=== PATIENT | female | born 1925 | race Caucasian/White ===

== ENCOUNTER 2017-02-02 17:55 | Inpatient (IN) | payer MEDICARE, OTHER ==
[~2017-02-02] VITALS: Ht 142.2 cm; Wt 85.9 kg
[~2017-02-02 17:55] MED LIST: ALBUTEROL2.5 MG/3 M IH; ARICEPT5 MG PO; ATENOLOL50 MG PO; AZELASTINE 0.1%; BUMETANIDE1 MG PO; CARAFATE1 GM/10 ML PO; CARDIZEM CD180 MG PO; CLOBETASOL 0.05%; CLOBETASOL EMOL15 GM TP; DEXILANT60 MG PO; DONEPEZIL HCL5 MG PO; DOXEPIN HCL25 MG PO; ELOCON TP; FERGON240 MG PO; FLECTOR1 EACH TP; FLONASE16 GM NS; FLUTICASONE; FLUTICASONE PROPIONATE IH; FUROSEMIDE40 MG PO; HYDROCODONE-AP1 EAC7 PO; KEFLEX500 MG PO; KLOR-CON 1010 MEQ PO; LEVAQUIN500 MG PO; LIPITOR10 MG PO; LISINOPRIL2.5 MG PO; MEDROL4 M1 PO; METOPROLOL TART25 MG PO; MOMETASONE FURO15 G1 TOP; Metoprolol Tartrate PO; NIFEDIPINE10 MG PO; ONDANSETRON ODT4 MG PO; PRILOSEC20 MG PO; PROAIR HFA; PROCARDIA10 MG PO; PROLIA60 MG/1 ML SQ; QVAR IH; QVAR INH; RESTORIL15 MG PO; SALMETEROL IH; SINGULAIR10 MG PO; TEMAZEPAM15 MG PO; TRAMADOL HCL50 MG PO; VITAMIN B-1000 MCG/2 IM; VITAMIN B-121000 MCG PO; VITAMIN D50000 UNI1 PO; ZOFRAN4 MG PO; [UNRECOGNIZED DRUG - OTHER]
--- NOTE | 2017-02-02 18:10 | NUR ---
AT 1810 CODE SEPSIS INITIATED AND DR CEBALLOS WAS INFORMED PRIOR.
[2017-02-02] MEDS ORDERED: IV NORMAL SALINE 1000 ML BAG IV ONE (18:15)
[2017-02-02] MEDS ORDERED: ONDANSETRON 4 MG/2 ML VIAL IV ONE (18:15)
[2017-02-02] MEDS ORDERED: ONDANSETRON 4 MG/2 ML VIAL ONE (18:27)
[2017-02-02] MEDS ORDERED: KETOROLAC TROMETHAMINE 15 MG INJ IVP ONE (18:45)
[2017-02-02] MEDS ORDERED: ACETAMINOPHEN 325 MG TABLET PO ONE (18:45)
[2017-02-02] MEDS ORDERED: CEFTRIAXONE 2 G in IV DEXTROSE 5% 100 ML IV ONE (18:45)
[2017-02-02] MEDS ORDERED: VOLTAREN100 GM TOP (18:54)
[2017-02-02] MEDS ORDERED: VITAMIN B121000 MCG PO (18:54)
[2017-02-02] MEDS ORDERED: MONTELUKAST SOD10 MG PO (18:54)
[2017-02-02] MEDS ORDERED: PROLIA60 MG/1 ML SQ (18:55)
[2017-02-02] MEDS ORDERED: BUMETANIDE1 MG PO (18:55)
[2017-02-02] MEDS ORDERED: LIPITOR10 MG PO (18:55)
[2017-02-02] MEDS ORDERED: METOPROLOL TART25 MG PO (18:55)
[2017-02-02] MEDS ORDERED: ARICEPT5 MG PO (18:55)
[2017-02-02] MEDS ORDERED: DOXEPIN HCL25 MG PO (18:55)
[2017-02-02] MEDS ORDERED: CARAFATE1 GM PO (18:55)
--- NOTE | 2017-02-02 19:00 | NUR ---
Received report from ALIE Schilling.
[2017-02-02] MEDS ORDERED: CEFTRIAXONE 1 G VIAL ONE (19:03)
[2017-02-02] MEDS ORDERED: ACETAMINOPHEN 325 MG TABLET ONE (19:04)
[2017-02-02] MEDS ORDERED: KETOROLAC TROMETHAMINE 15 MG INJ ONE (19:04)
--- NOTE | 2017-02-02 19:13 | NUR ---
report given to shift supervisor rn.
--- NOTE | 2017-02-02 19:15 | NUR ---
Assessment done. Lung sounds diminished at rt side. Satting 99% on 2 L via nc.Son and caregiver at the bedside.VS stable.Urinated approximately 100mls via bedpan.Reinserted IV at left wrist.
[2017-02-02] MEDS ORDERED: LEVOFLOXACIN 750 MG/D5W 150 ML PIGGYBACK IV ONE (19:30)
[2017-02-02] MEDS ORDERED: NORMAL SALINE FLUSH 10 ML DISP.SYRIN ONE ×2 (19:50→20:35)
[2017-02-02] MEDS ORDERED: IV NORMAL SALINE 250 ML IV ONE ×2 (19:50→20:35)
[2017-02-02] MEDS ORDERED: IOHEXOL 300MG/ML 100 ML INFUS..BTL ONE ×2 (19:50→20:35)
[2017-02-02] MEDS ORDERED: diphenhydrAMINE 50 MG/1 ML VIAL IV ONE (20:00)
--- NOTE | 2017-02-02 20:15 | NUR ---
Hanged Levofloxacin 750mg/150ml over 90 minutes.
[2017-02-02] MEDS ORDERED: diphenhydrAMINE 50 MG/1 ML VIAL ONE (20:16)
[2017-02-02] MEDS ORDERED: LEVOFLOXACIN 750MG/D5W 150 ML IV ONE (20:23)
--- NOTE | 2017-02-02 20:41 | NUR ---
Left for CT via gurney. HL line.
--- NOTE | 2017-02-02 22:35 | NUR ---
Admitted patient to [facility] floor with admitting DX: Urosepsis. AAO x3, accompanied by family and caregiver. Routine admission care done. Plan of care initiated.
[2017-02-02] MEDS ORDERED: MAGNESIUM HYDROXIDE 30 ML LIQUID UDC PO PRN (22:45)
[2017-02-02] MEDS ORDERED: HYDROCODONE/APAP 5-325MG TABLET PO PRN (22:45)
[2017-02-02] MEDS ORDERED: Z GUARD REMEDY PASTE 57 GM TUBE TOP PRN (22:45)
--- NOTE | 2017-02-02 22:50 | NUR ---
Report to ALIE Mccarthy
--- NOTE | 2017-02-02 23:05 | NUR ---
Transferred pt to Tele floor with RN via [facility].Admitting papers w/ RN.VS stable: 97.9, BP 116/45, 64 HR, 20 RR satting 98-100% with 2L O2.
--- NOTE | 2017-02-03 00:05 | NUR ---
Got order from Dr. Martinez for insomia as per family request.
[2017-02-03 00:10] VITALS: BP 131/51; TEMP 98.4
[2017-02-03] MEDS: TRAZODONE 50 MG TABLET PO SCH ×2 (00:17→20:33)
[2017-02-03] MEDS ORDERED: TRAZODONE 50 MG TABLET ONE (00:24)
[2017-02-03 04:00] VITALS: BP 129/56; TEMP 99.5
--- NOTE | 2017-02-03 06:13 | NUR ---
Slept at short interval. Patient complaining of coldness in the room. Bundled up patient with multiple layers of blanket. Safety measure and fall precaution maintained. Denies any pain the whole shift. All needs attended and met. No significant event reported. Continue care as planned.
--- NOTE | 2017-02-03 07:10 | NUR ---
Report given to ALIE Silverman
[2017-02-03] MEDS: ACETAMINOPHEN 325 MG TABLET PO PRN ×2 (08:40→20:33)
[2017-02-03] MEDS: BUMETANIDE 1 MG TABLET PO SCH ×2 (08:40→16:30)
[2017-02-03] MEDS: MONTELUKAST SODIUM 10 MG TABLET PO SCH (08:41)
[2017-02-03] MEDS: METOPROLOL TARTRATE 25 MG TABLET PO SCH (08:41)
[2017-02-03] MEDS: CYANOCOBALAMIN 1,000 MCG TABLET PO SCH (08:41)
[2017-02-03] MEDS: DONEPEZIL 5 MG TABLET PO SCH (08:41)
[2017-02-03] MEDS: LISINOPRIL 5 MG TABLET PO SCH (08:41)
[2017-02-03] MEDS: FERROUS GLUCONATE 324 MG TABLET PO SCH ×2 (08:42→08:47)
[2017-02-03] MEDS: ONDANSETRON 4 MG/2 ML VIAL IV PRN (08:49)
[2017-02-03] MEDS: POTASSIUM CHLORIDE 10 MEQ CAPSULE.SA PO SCH (08:59)
[2017-02-03] MEDS: SUCRALFATE 1 G TABLET PO SCH (08:59)
[2017-02-03] MEDS ORDERED: NIFEdipine 10 MG CAPSULE PO SCH (09:00)
[2017-02-03] MEDS ORDERED: MONTELUKAST SODIUM 10 MG TABLET PO SCH (09:00)
[2017-02-03] MEDS ORDERED: DICLOFENAC SODIUM TOP SCH (09:00)
[2017-02-03] MEDS ORDERED: OMEPRAZOLE 20 MG PO SCH (09:00)
[2017-02-03] MEDS ORDERED: FERROUS GLUCONATE 240 MG PO SCH (09:00)
[2017-02-03] MEDS ORDERED: DONEPEZIL 5 MG TABLET PO SCH (09:00)
--- NOTE | 2017-02-03 09:04 | NUR ---
PT TEMP 99.1, TYLENOL GIVEN. PT COMPLAINING OF NAUSEA, ZOFRAN ALSO GIVEN, WILL CONTINUE TO MONITOR
[2017-02-03] MEDS ORDERED: NIFEdipine 10 MG CAPSULE PO PRN (10:15)
--- NOTE | 2017-02-03 10:24 | NUR ---
DR HOOK AWARE PT POSITIVE FOR GRAM NEGATIVE RODS IN BLOOD CULTURES X2. NO ORDERS AT THIS TIME.
[2017-02-03] MEDS: DOXEPIN 25 MG CAPSULE PO SCH (10:48)
[2017-02-03] MEDS: DILTIAZEM HCL CD 120 MG CAP.SR.24H PO SCH (10:54)
[2017-02-03 11:45] VITALS: BP 98/42; TEMP 99.1
[2017-02-03] MEDS: MAGNESIUM SULFATE/D5W 100 ML IV SCH ×2 (14:47→15:59)
[2017-02-03 16:09] VITALS: BP 110/42; TEMP 97.5
[2017-02-03] MEDS: IV NS 1000 ML 1,000 ML IV PRN (17:13)
[2017-02-03 19:00] VITALS: BP 129/42; TEMP 98.2
--- NOTE | 2017-02-03 20:10 | NUR ---
Patient asking to put a buck catheter on her because she does not want to go the bathroom because she's always cold. I told patient that she has urosepsis and not good to put one but I told her that Im going to text Dr Do if Ok.
--- NOTE | 2017-02-03 20:20 | NUR ---
Text Dr. Do and refused to give order with same reason. Patient made aware and answered back that we are not giving good service.
[2017-02-03] MEDS: ATORVASTATIN 10 MG TABLET PO SCH (20:33)
[2017-02-03] MEDS: CEFTRIAXONE 1 G in IV DEXTROSE 5% 50 ML IV SCH (20:33)
--- NOTE | 2017-02-03 20:41 | NUR ---
Patient complaining of headache, Tylenol given as needed ad ordered. Patient questioning why IM only giving her 650mg of Tylenol and she wants 1000mg. Explained to patient that that's the one ordered and if not working for her headache I promised that I can call the MD to change it to 1000mg of Tylenol.
[2017-02-04] MEDS: IV NS 1000 ML 1,000 ML IV PRN ×2 (03:37→15:11)
[2017-02-04 04:00] VITALS: BP 143/50; TEMP 98.4
--- NOTE | 2017-02-04 05:38 | NUR ---
Ambulated to the BR, IV leaking, removed. Instructed patient that I'm going to re insert a new one but refused. Charge nurse made aware.
--- NOTE | 2017-02-04 05:42 | NUR ---
Lab drawn, patient complaining of pain, and she's crying.
--- NOTE | 2017-02-04 05:45 | NUR ---
Lab draw unsuccessful, pt refused . Charge nurse aware.
--- NOTE | 2017-02-04 06:30 | NUR ---
Patient and caregiver very inpatient to their demands. The are very needy, demanding and don't know how to appreciate the favors you're doing. Lying quietly at this time. No further complaint presented. All needs attended.No significant event reported. Continue care as planned.
[2017-02-04] MEDS: POTASSIUM CHLORIDE 10 MEQ CAPSULE.SA PO SCH (08:33)
[2017-02-04] MEDS: CYANOCOBALAMIN 1,000 MCG TABLET PO SCH (08:33)
[2017-02-04] MEDS: FERROUS GLUCONATE 324 MG TABLET PO SCH (08:33)
[2017-02-04] MEDS: SUCRALFATE 1 G TABLET PO SCH (08:33)
[2017-02-04] MEDS: MONTELUKAST SODIUM 10 MG TABLET PO SCH (08:33)
[2017-02-04] MEDS: PANTOPRAZOLE SODIUM 40 MG TABLET.DR PO SCH (08:33)
[2017-02-04] MEDS: BUMETANIDE 1 MG TABLET PO SCH ×2 (08:33→16:19)
[2017-02-04] MEDS: DONEPEZIL 5 MG TABLET PO SCH (08:38)
[2017-02-04] MEDS: DILTIAZEM HCL CD 120 MG CAP.SR.24H PO SCH (08:38)
[2017-02-04] MEDS: METOPROLOL TARTRATE 25 MG TABLET PO SCH (08:39)
[2017-02-04] MEDS: LISINOPRIL 5 MG TABLET PO SCH (08:39)
--- NOTE | 2017-02-04 10:45 | NUR ---
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
[2017-02-04] MEDS: DOXEPIN 25 MG CAPSULE PO SCH (11:10)
[2017-02-04 12:03] VITALS: BP 117/48; TEMP 98.6
[2017-02-04 16:04] VITALS: BP 113/48; TEMP 98.8
--- NOTE | 2017-02-04 17:57 | NUR ---
IV IN RIGHT HAND PLACED, INFUSING WELL. FAMILY AT BEDSIDE STATING PT NEEDS INHALER, NO INHALER ORDERED AND PT IN NO RESP DISTRESS. CALLED RT FOR A BREATHING TREATMENT. WILL CONTINUE TO MONITOR
[2017-02-04] MEDS: ALBUTEROL SULFATE 2.5 MG/3 ML NEBU IH PRN (18:03)
--- NOTE | 2017-02-04 19:50 | NUR ---
PATIENT AWAKE ON BED, NO DISTRESS NOTED. PERSONAL CAREGIVERAT THE BED SIDE. WILL CONTINUE TO MONITOR. CALL LIGHT IN REACH .
[2017-02-04 20:00] VITALS: BP 105/42; TEMP 98.9
[2017-02-04] MEDS: ATORVASTATIN 10 MG TABLET PO SCH (20:29)
[2017-02-04] MEDS: ACETAMINOPHEN 325 MG TABLET PO PRN (20:29)
[2017-02-04] MEDS: CEFTRIAXONE 1 G in IV DEXTROSE 5% 50 ML IV SCH (20:29)
[2017-02-04] MEDS: TRAZODONE 50 MG TABLET PO SCH (20:29)
[2017-02-05 04:45] VITALS: BP 132/48; TEMP 98.3
[2017-02-05] MEDS: PANTOPRAZOLE SODIUM 40 MG TABLET.DR PO SCH (06:01)
[2017-02-05] MEDS: IV NS 1000 ML 1,000 ML IV PRN ×2 (08:05→19:04)
[2017-02-05] MEDS: LISINOPRIL 5 MG TABLET PO SCH (08:37)
[2017-02-05] MEDS: MONTELUKAST SODIUM 10 MG TABLET PO SCH (08:37)
[2017-02-05] MEDS: DOXEPIN 25 MG CAPSULE PO SCH (08:38)
[2017-02-05] MEDS: POTASSIUM CHLORIDE 10 MEQ CAPSULE.SA PO SCH (08:38)
[2017-02-05] MEDS: SUCRALFATE 1 G TABLET PO SCH (08:39)
[2017-02-05] MEDS: BUMETANIDE 1 MG TABLET PO SCH ×2 (08:39→17:13)
[2017-02-05] MEDS: METOPROLOL TARTRATE 25 MG TABLET PO SCH (08:40)
[2017-02-05] MEDS: CYANOCOBALAMIN 1,000 MCG TABLET PO SCH (10:30)
[2017-02-05] MEDS: DILTIAZEM HCL CD 120 MG CAP.SR.24H PO SCH (10:31)
[2017-02-05] MEDS: FERROUS GLUCONATE 324 MG TABLET PO SCH (10:31)
[2017-02-05] MEDS: DONEPEZIL 5 MG TABLET PO SCH (10:31)
[2017-02-05 11:44] VITALS: BP 150/63; TEMP 98.8
--- NOTE | 2017-02-05 15:12 | NUR ---
The patient's discharge plan is to return back home [[id number] [place] [address]] once stable. Spoke to her daughter, Vidhi [ ], and she stated that she will pick her up via private car once medically cleared. Updated the battery charger, Estefanía, on the matter.
[2017-02-05] MEDS: ONDANSETRON 4 MG/2 ML VIAL IV PRN ×2 (15:17→21:56)
[2017-02-05 15:28] VITALS: BP 143/52; TEMP 98.6
[2017-02-05] MEDS: ACETAMINOPHEN 325 MG TABLET PO PRN ×2 (15:28→21:56)
--- NOTE | 2017-02-05 18:10 | NUR ---
patient alert and able to ambulate with assistance in the bathroom. able to swallow oral meds. no pain presented. on and off nausea meds given as prn.continue to monitor.
[2017-02-05 20:00] VITALS: BP 124/53; TEMP 97.9
[2017-02-05] MEDS: ALBUTEROL SULFATE 2.5 MG/3 ML NEBU IH PRN (20:19)
--- NOTE | 2017-02-05 21:00 | NUR ---
PT'S A/A/O X4,ASSISTED FOR PM CARE IN THE BATHROOM.PT FREQUENTLY WALKED TO BATHROOM UNDER SUPERVISION,STEADY GAIT NOTED.MAINTAINED IVF ORDER,PT'S TAKING ORAL FLUID WELL NOTED.KEPT COMFORT.CALL-LIGHT WITHIN REACH.
[2017-02-05] MEDS: ATORVASTATIN 10 MG TABLET PO SCH (21:04)
[2017-02-05] MEDS: CEFTRIAXONE 1 G in IV DEXTROSE 5% 50 ML IV SCH (21:04)
[2017-02-05] MEDS: TRAZODONE 50 MG TABLET PO SCH (21:04)
--- NOTE | 2017-02-05 22:00 | NUR ---
PT WALKED TO BATHROOM MANY TIMES AND STATED THAT SHE FELT A LITTLE NAUSEA AND MILD H/A;ZOFRAN AND TYLENOL WERE GIVEN TO PT RECORD;ASSISTED TO SIT ON CHAIR FOR 30 MINUTES AND BACK TO BED;WARM BLANKET'S GIVEN TO PT.KEPT COMFORT,CLOSELY MONITORING TO PT.BED ALARM'S ON FOR SAFETY;EDUCATED TO PT ABOUT IT,SHE VERBALIZED UNDERSTANDING AND COOPERATIVE NOTED.
[2017-02-06 04:22] VITALS: BP 121/53; TEMP 97.9
[2017-02-06] MEDS: PANTOPRAZOLE SODIUM 40 MG TABLET.DR PO SCH (06:24)
--- NOTE | 2017-02-06 06:30 | NUR ---
PT SLEPT ON/OFF TONIGHT,COOPERATIVE W/ASSISTANCE.ASSISTED TO GO TO BATHROOM THIS MORNING BUT PT REFUSED TO GET ANY AM CARE,STATED THAT"I'M VERY COLD";WARM BLANKET'S GIVEN TO PT.PT REFUSED TO GET BACK IVF AFTER CAME BACK FROM BATHROOM,STATED THAT' I NEED TO SLEEP".KEPT COMFORT.BED ALARM'S ON.CLOSELY MONITORING TO PT.PT TOLERATED WELL WITH TX ORDER.
[2017-02-06] MEDS: DONEPEZIL 5 MG TABLET PO SCH (08:45)
[2017-02-06] MEDS: BUMETANIDE 1 MG TABLET PO SCH (08:45)
[2017-02-06] MEDS: SUCRALFATE 1 G TABLET PO SCH (08:45)
[2017-02-06] MEDS: MONTELUKAST SODIUM 10 MG TABLET PO SCH (08:45)
[2017-02-06] MEDS: POTASSIUM CHLORIDE 10 MEQ CAPSULE.SA PO SCH (08:45)
[2017-02-06] MEDS: CYANOCOBALAMIN 1,000 MCG TABLET PO SCH (08:45)
[2017-02-06] MEDS: DOXEPIN 25 MG CAPSULE PO SCH (08:46)
[2017-02-06] MEDS: METOPROLOL TARTRATE 25 MG TABLET PO SCH (08:48)
[2017-02-06] MEDS: DILTIAZEM HCL CD 120 MG CAP.SR.24H PO SCH (08:48)
[2017-02-06] MEDS: FERROUS GLUCONATE 324 MG TABLET PO SCH (08:50)
[2017-02-06] MEDS: LISINOPRIL 5 MG TABLET PO SCH (08:52)
[2017-02-06] MEDS ORDERED: ERGOCALCIFEROL 50,000 UNIT CAPSULE PO SCH (09:00)
[2017-02-06] MEDS ORDERED: LEVAQUIN500 MG PO (09:37)
[2017-02-06 11:29] VITALS: BP 141/60; TEMP 97.2
--- NOTE | 2017-02-06 12:00 | NUR ---
Discharge paper discussed with pt and son at bedside. Pt verbalized understanding. IV d/c as ordered. pt saturating 95% on R/A. Pt and son in a hurry to leave pharmacist declined. Pt to f/u with her PMD re: vaccinations status. Call light is within reach.
== END 2017-02-06 12:00 | disposition home or self-care (01) | DRG 872 ==
LOC: EDBD 17:57 → ER 17:57 → TELE 22:51 → MED 02-03 10:53
PROVIDERS: ADMIT Family Medicine; ATTEND Family Medicine
DX: A41.9 Sepsis, unspecified organism (principal); I50.32 Chronic diastolic (congestive) heart failure; E44.0 Moderate protein-calorie malnutrition; E11.9 Type 2 diabetes mellitus without complications; E66.9 Obesity, unspecified; F03.90 Unspecified dementia, unspecified severity, without behavioral disturbance, psychotic disturbance, mood disturbance, and anxiety; J44.9 Chronic obstructive pulmonary disease, unspecified; K21.9 Gastro-esophageal reflux disease without esophagitis; I48.91 Unspecified atrial fibrillation; J45.909 Unspecified asthma, uncomplicated